=== PATIENT | male | born 1935 | race Caucasian/White ===

== ENCOUNTER 2017-12-25 01:35 | Outpatient (CLI) | payer MEDICARE | END 2017-12-25 23:59 | disposition home or self-care (01) | LOC: DIABETIC 01:35 | PROVIDERS: ATTEND Internal Medicine Interventional Cardiology | DX: E11.21 Type 2 diabetes mellitus with diabetic nephropathy (principal) | CPT/HCPCS: G0108 ==

== ENCOUNTER 2019-09-02 12:23 | Observation (INO) | payer MEDICARE, OTHER ==
[~2019-09-02] VITALS: Ht 167.6 cm; Wt 160.0 kg
[2019-09-02 13:03] LABS: BASOPHILS % (AUTO) 0.7 % (0-1); EOSINOPHILS # (AUTO) 0.4 X10'3 (0-0.9); EOSINOPHILS % (AUTO) 6.7 % (0-6); HEMATOCRIT 38.7 % (42.0-52.0); LYMPHOCYTES # (AUTO) 1.4 X10'3 (1.1-4.8); LYMPHOCYTES % (AUTO) 23.7 % (21-51); MEAN CORPUSCULAR HEMOGLOBIN 32.9 PG (27.0-31.0); MEAN CORPUSCULAR HGB CONC 33.6 g/dL (33.0-36.5); MEAN CORPUSCULAR VOLUME 97.9 FL (78-98); MEAN PLATELET VOLUME 7.8 FL (7.4-10.4); MONOCYTES # (AUTO) 0.3 X10'3 (0-0.9); MONOCYTES % (AUTO) 5.4 % (2-12); NEUTROPHILS # (AUTO) 3.8 X10'3 (1.8-7.7); NEUTROPHILS % (AUTO) 63.5 % (42-75); PLATELET COUNT 179 X10'3 (140-440); RED BLOOD COUNT 3.95 X10'6 (4.70-6.10); RED CELL DISTRIBUTION WIDTH 14.5 % (11.5-14.5); WHITE BLOOD COUNT 5.9 X10'3 (4.5-11.0)
[2019-09-02 13:45] LABS: ALANINE AMINOTRANSFERASE 27 U/L (12-78); ALBUMIN 3.3 G/DL (3.4-5.0); ALBUMIN/GLOBULIN RATIO 0.9 (1.1-1.5); ALKALINE PHOSPHATASE 99 IU/L (46-116); ANION GAP 9 (8-16); ASPARTATE AMINO TRANSFERASE 19 U/L (10-37); BILIRUBIN,TOTAL 0.4 MG/DL (0.1-1.0); BLOOD UREA NITROGEN 26 MG/DL (7-18); BUN/CREATININE RATIO 15.3 (5.4-32.0); CALCIUM 8.8 MG/DL (8.5-10.1); CHLORIDE 107 MMOL/L (99-107); GLUCOSE 213 MG/DL (70-104); POTASSIUM 4.1 MMOL/L (3.5-5.1); SODIUM 141 MMOL/L (135-145); TOTAL CARBON DIOXIDE 24.6 MMOL/L (24-32); TOTAL PROTEIN 7.1 G/DL (6.4-8.2); eGFR 39 ML/MIN
[2019-09-02] MEDS ORDERED: magnesium Cl slow-release 64mg tablet PO PRN (14:50)
[2019-09-02] MEDS ORDERED: acetaminophen 325mg tablet PO PRN (14:50)
[2019-09-02] MEDS ORDERED: ondansetron/PF 4mg/2ml inj IV PRN (14:50)
[2019-09-02] MEDS ORDERED: potassium Cl 20 mEq SR tablet PO PRN ×2 (14:50)
[2019-09-02] MEDS ORDERED: magnesium 4gm in 100ml NS 100 ML IV PRN (14:50)
[2019-09-02] MEDS ORDERED: potassium CL 10mEq/100ml bag 100 ML IV PRN ×2 (14:50)
[2019-09-02] MEDS ORDERED: morphine 2 MG/ML inj. syringe IV PRN (14:50)
[2019-09-02] MEDS ORDERED: magnesium 2GM in 50ml NS 50 ML IV PRN (14:50)
[2019-09-02] MEDS ORDERED: LOSA100T57 PO (15:21)
[2019-09-02] MEDS ORDERED: OMEG-107 PO (15:21)
[2019-09-02] MEDS ORDERED: DORZ10DR10 OP (15:21)
[2019-09-02] MEDS ORDERED: ASPI-611 PO (15:21)
[2019-09-02] MEDS ORDERED: ALLO100T PO (15:21)
[2019-09-02] MEDS ORDERED: ALOG12.52 PO (15:23)
[2019-09-02] MEDS ORDERED: ATOR40TA71 PO (15:23)
--- NOTE | 2019-09-02 16:00 | NUR ---
Patient in room MED 313. I have received report from Deedee HEDRICK RN and had the opportunity to ask questions and assume patient care.
--- NOTE | 2019-09-02 16:20 | NUR ---
Pt brought to room 313 and he was oriented to his room, call light, telephone etc. He is A&O x4. Placed on monitor. His VS are stable. He denies any chest pain or SOB. He requested to stay up in his chair by the bed. Call light is in reach.
[2019-09-02 16:30] VITALS: BP 159/74
[2019-09-02] MEDS ORDERED: dextrose ORAL solution 15 GM/59 ML bottle PO PRN ×2 (16:50)
[2019-09-02] MEDS ORDERED: MESSAGE TO PHARMACY PO ONE (16:50)
[2019-09-02] MEDS ORDERED: dextrose 50%-water 50ml dispensing syringe IV PRN ×2 (16:50)
[2019-09-02] MEDS ORDERED: glucagon, human recombinant 1mg kit SUBCUT PRN (16:50)
[2019-09-02] MEDS ORDERED: insulin Lispro (HumaLOG) vial - multi-dose SQ SCH (16:50)
[2019-09-02 17:17] LABS: HEMOGLOBIN A1C 7.5 % (4.5-6.2)
[2019-09-02] MEDS: allopurinol 100mg tablet PO SCH (17:55)
[2019-09-02 18:00] VITALS: BP 149/71
--- NOTE | 2019-09-02 18:10 | NUR ---
received report from CHRISTIANA Sibley
--- NOTE | 2019-09-02 19:16 | NUR ---
pt to the bathroom, tele 27, television servicer notified
[2019-09-02] MEDS: omega-3 acid ethyl esters 1GM capsule PO SCH (19:44)
[2019-09-02] MEDS: dorzolamide/timolol (Cosopt) ophthalmic drops 10ml bottle EACHEYE SCH (19:44)
[2019-09-02] MEDS: heparin, porcine 5000 units/ml vial SQ SCH (19:44)
[2019-09-02] MEDS: K and/or MAG REPLACEMENT MC SCH (19:50)
[2019-09-02] MEDS ORDERED: insulin glargine (Lantus) pen - multi-dose SQ SCH (21:00)
[2019-09-02 22:00] VITALS: BP 136/67
[2019-09-03 00:53] LABS: EOSINOPHILS # (AUTO) 0.4 X10'3 (0-0.9); MONOCYTES # (AUTO) 0.5 X10'3 (0-0.9)
[2019-09-03 00:54] LABS: BASOPHILS % (AUTO) 0.5 % (0-1); EOSINOPHILS % (AUTO) 6.7 % (0-6); HEMATOCRIT 38.6 % (42.0-52.0); LYMPHOCYTES % (AUTO) 32.7 % (21-51); MEAN CORPUSCULAR HEMOGLOBIN 32.8 PG (27.0-31.0); MEAN CORPUSCULAR HGB CONC 33.7 g/dL (33.0-36.5); MEAN CORPUSCULAR VOLUME 97.3 FL (78-98); MEAN PLATELET VOLUME 7.9 FL (7.4-10.4); MONOCYTES % (AUTO) 8.5 % (2-12); NEUTROPHILS # (AUTO) 3.2 X10'3 (1.8-7.7); NEUTROPHILS % (AUTO) 51.6 % (42-75); PLATELET COUNT 173 X10'3 (140-440); RED BLOOD COUNT 3.97 X10'6 (4.70-6.10); RED CELL DISTRIBUTION WIDTH 14.6 % (11.5-14.5); WHITE BLOOD COUNT 6.1 X10'3 (4.5-11.0)
[2019-09-03 01:08] LABS: ALBUMIN 3.1 G/DL (3.4-5.0); ANION GAP 8 (8-16); BLOOD UREA NITROGEN 29 MG/DL (7-18); BUN/CREATININE RATIO 17.7 (5.4-32.0); CHLORIDE 108 MMOL/L (99-107); CREATININE 1.64 MG/DL (0.60-1.10); GLUCOSE 115 MG/DL (70-104); MAGNESIUM 1.9 MG/DL (1.5-2.4); POTASSIUM 4.3 MMOL/L (3.5-5.1); SODIUM 142 MMOL/L (135-145); TOTAL CARBON DIOXIDE 26.3 MMOL/L (24-32); eGFR 40 ML/MIN
[2019-09-03 02:00] VITALS: BP 138/73
--- NOTE | 2019-09-03 06:19 | NUR ---
Patient in room MED 313. I have received report from CHRISTIANA Mcknight and had the opportunity to ask questions and assume patient care.
--- NOTE | 2019-09-03 06:22 | NUR ---
gave report to CHRISTIANA Dodd
[2019-09-03 06:52] VITALS: BP 132/77
[2019-09-03] MEDS ORDERED: aspirin 81mg tablet.DR PO SCH (08:00)
[2019-09-03] MEDS: K and/or MAG REPLACEMENT MC SCH (08:00)
[2019-09-03] MEDS ORDERED: losartan 50mg tablet PO SCH (08:00)
[2019-09-03] MEDS ORDERED: atorvastatin 20mg tablet PO SCH (08:00)
[2019-09-03] MEDS ORDERED: linagliptin 5mg tablet PO SCH (08:00)
[2019-09-03] MEDS: allopurinol 100mg tablet PO SCH (08:49)
[2019-09-03] MEDS: dorzolamide/timolol (Cosopt) ophthalmic drops 10ml bottle EACHEYE SCH (08:50)
[2019-09-03] MEDS: omega-3 acid ethyl esters 1GM capsule PO SCH (08:50)
[2019-09-03] MEDS: heparin, porcine 5000 units/ml vial SQ SCH (08:53)
--- NOTE | 2019-09-03 09:44 | NUR ---
VASCULAR PAGED: 313: YVES - CAROTID DOPPLERS ORDERED. THANK YOU
--- NOTE | 2019-09-03 09:45 | NUR ---
ELECTROLYSIS NEEDLE OPERATOR PAGED: 313: YVES - ECHO ORDERED TY
[2019-09-03 11:00] VITALS: BP 134/69
--- NOTE | 2019-09-03 11:56 | NUR ---
PAGER ID: [phone] MESSAGE: 313: YVES - carotid report from [facility] office done 08/31/19. <50% stenosis R dist CA, 50% stenosis L dist CA. similar to previous carotids study. nurse Ju [phone]
--- NOTE | 2019-09-03 13:30 | NUR ---
discharge instructions given to patient and . all questions and concerns addressed at this time. PIV removed with tip intact. stable for discharge. patient walked independently to private vehicle, denied need for wheelchair escort to lobby.
== END 2019-09-03 13:20 | disposition home or self-care (01) ==
LOC: ER 12:23 → ED HOLD 14:46 → MED 3N 16:20
PROVIDERS: ADMIT Internal Medicine; ATTEND Internal Medicine
DX: R07.89 Other chest pain (principal); R01.1 Cardiac murmur, unspecified; F41.9 Anxiety disorder, unspecified; E11.9 Type 2 diabetes mellitus without complications; I10 Essential (primary) hypertension; I25.2 Old myocardial infarction; M19.90 Unspecified osteoarthritis, unspecified site; I34.0 Nonrheumatic mitral (valve) insufficiency; I25.10 Atherosclerotic heart disease of native coronary artery without angina pectoris; E78.5 Hyperlipidemia, unspecified; Z95.1 Presence of aortocoronary bypass graft; Z95.5 Presence of coronary angioplasty implant and graft; Z79.82 Long term (current) use of aspirin; Z79.899 Other long term (current) drug therapy
CPT/HCPCS: 36415; 71045; 80048; 80053; 82948; 83036; 83735; 84484; 85025; 87081; 93005; 93306; 96372; 99284; G0378; J1644; J1815

== ENCOUNTER 2020-04-20 09:32 | Outpatient (CLI) | payer BC ==
[~2020-04-20 09:32] MED LIST: ALLO100T PO; ALOG12.52 PO; ASPI-611 PO; ATOR40TA71 PO; DORZ10DR10 OP; LOSA100T57 PO; OMEG-107 PO
[2020-04-20 10:22] LABS: BASOPHILS % (AUTO) 0.5 % (0-1); EOSINOPHILS # (AUTO) 0.7 X10'3 (0-0.9); EOSINOPHILS % (AUTO) 8.7 % (0-6); HEMATOCRIT 40.4 % (42.0-52.0); HEMOGLOBIN 13.2 g/dl (14.0-17.9); LYMPHOCYTES # (AUTO) 1.9 X10'3 (1.1-4.8); LYMPHOCYTES % (AUTO) 24.4 % (21-51); MEAN CORPUSCULAR HEMOGLOBIN 32.7 PG (27.0-31.0); MEAN CORPUSCULAR HGB CONC 32.8 g/dL (33.0-36.5); MEAN CORPUSCULAR VOLUME 99.8 FL (78-98); MEAN PLATELET VOLUME 8.3 FL (7.4-10.4); MONOCYTES # (AUTO) 0.5 X10'3 (0-0.9); MONOCYTES % (AUTO) 6.9 % (2-12); NEUTROPHILS # (AUTO) 4.6 X10'3 (1.8-7.7); NEUTROPHILS % (AUTO) 59.5 % (42-75); PLATELET COUNT 176 X10'3 (140-440); RED BLOOD COUNT 4.05 X10'6 (4.70-6.10); RED CELL DISTRIBUTION WIDTH 14.7 % (11.5-14.5); WHITE BLOOD COUNT 7.8 X10'3 (4.5-11.0)
[2020-04-20 10:26] LABS: ALBUMIN 3.5 G/DL (3.4-5.0); ANION GAP 9 (8-16); BLOOD UREA NITROGEN 40 MG/DL (7-18); BUN/CREATININE RATIO 21.5 (5.4-32.0); CALCIUM 8.9 MG/DL (8.5-10.1); CHLORIDE 106 MMOL/L (99-107); CREATININE 1.86 MG/DL (0.60-1.10); GLUCOSE 164 MG/DL (70-104); POTASSIUM 4.3 MMOL/L (3.5-5.1); SODIUM 139 MMOL/L (135-145); TOTAL CARBON DIOXIDE 24.1 MMOL/L (24-32); eGFR 35 ML/MIN
[2020-04-20 10:30] LABS: PARTIAL THROMBOPLASTIN TIME 35 SECONDS (22-32)
== END 2020-04-20 23:59 | disposition home or self-care (01) ==
LOC: SSTAY O 09:32 → EDSTATUS 04-25 11:00
PROVIDERS: ATTEND Internal Medicine Interventional Cardiology
DX: I10 Essential (primary) hypertension (principal); I25.10 Atherosclerotic heart disease of native coronary artery without angina pectoris
CPT/HCPCS: 36415; 80048; 85025; 85610; 85730

== ENCOUNTER 2021-02-27 09:31 | Day surgery (SDC) | payer MEDICARE, OTHER ==
[~2021-02-27] VITALS: Ht 167.6 cm; Wt 74.6 kg
[2021-02-27] VITALS (9 sets, daily range): BP systolic 132–145; BP diastolic 75–86
[~2021-02-27 09:31] MED LIST changes: -OMEG-107 PO; +OMEG-220 PO
[2021-02-27] MEDS ORDERED: LIDOcaine/PRILOcaine 5gm cream TP ONE (09:53)
[2021-02-27] MEDS ORDERED: LORazepam 0.5 MG tablet PO PRN (09:55)
[2021-02-27] MEDS ORDERED: diphenhydrAMINE 25mg capsule PO PRN (09:55)
[2021-02-27] MEDS ORDERED: normal saline 1,000 ML IV SCH (09:55)
[2021-02-27] MEDS ORDERED: ISOS60TA71 PO (10:28)
[2021-02-27] MEDS ORDERED: TIMO5DRO32 RIGHTEYE (10:28)
[2021-02-27] MEDS ORDERED: CARV-49 PO (10:28)
[2021-02-27] MEDS ORDERED: midazolam 1 mg/ML 2ml injection ONE (12:50)
[2021-02-27] MEDS ORDERED: fentaNYL/PF 50MCG/1 ML 2ML syringe ONE (12:50)
[2021-02-27] MEDS ORDERED: iohexol 350MG/ML 100ml bottle IV ONE (12:51)
[2021-02-27] MEDS ORDERED: LIDOcaine 1% (10mg/ml)w/preservative injection 20ml MDV ONE (12:51)
[2021-02-27] MEDS ORDERED: ondansetron/PF 4mg/2ml inj IV PRN (14:10)
[2021-02-27] MEDS ORDERED: OXAZEpam 15mg capsule PO PRN (14:10)
[2021-02-27] MEDS ORDERED: proCHLORperazine 10 MG/2 ml inj IV PRN (14:10)
== END 2021-02-27 17:00 | disposition home or self-care (01) ==
LOC: SSTAY O 09:31
PROVIDERS: ATTEND Internal Medicine Interventional Cardiology
DX: I25.810 Atherosclerosis of coronary artery bypass graft(s) without angina pectoris (principal); E11.22 Type 2 diabetes mellitus with diabetic chronic kidney disease; I12.9 Hypertensive chronic kidney disease with stage 1 through stage 4 chronic kidney disease, or unspecified chronic kidney disease; N18.9 Chronic kidney disease, unspecified; I65.23 Occlusion and stenosis of bilateral carotid arteries; E78.5 Hyperlipidemia, unspecified; I34.0 Nonrheumatic mitral (valve) insufficiency; I71.4 Abdominal aortic aneurysm, without rupture; M10.9 Gout, unspecified; Z95.5 Presence of coronary angioplasty implant and graft; Z79.899 Other long term (current) drug therapy; Z79.82 Long term (current) use of aspirin
CPT/HCPCS: 82948; 93005; 93459; 99152; C1769; J1644; J2001; J2250; J3010; J7030; Q0163; Q9967; 99153; A4620; A6258

== ENCOUNTER 2021-10-08 13:42 | Outpatient (CLI) | payer MEDICARE, OTHER ==
[~2021-10-08 13:42] MED LIST changes: +CARV-49 PO; +ISOS60TA71 PO; -OMEG-220 PO; +TIMO5DRO32 RIGHTEYE
[2021-10-08 14:09] LABS: BASOPHILS # (AUTO) 0.1 X10'3 (0-0.2); BASOPHILS % (AUTO) 0.8 % (0-1); EOSINOPHILS # (AUTO) 0.7 X10'3 (0-0.9); EOSINOPHILS % (AUTO) 10.8 % (0-6); HEMATOCRIT 38.3 % (42.0-52.0); HEMOGLOBIN 12.7 g/dl (14.0-17.9); LYMPHOCYTES # (AUTO) 1.9 X10'3 (1.1-4.8); MEAN CORPUSCULAR HEMOGLOBIN 32.9 PG (27.0-31.0); MEAN CORPUSCULAR HGB CONC 33.2 g/dL (33.0-36.5); MEAN CORPUSCULAR VOLUME 98.9 FL (78-98); MEAN PLATELET VOLUME 7.9 FL (7.4-10.4); MONOCYTES # (AUTO) 0.5 X10'3 (0-0.9); MONOCYTES % (AUTO) 7.9 % (2-12); NEUTROPHILS # (AUTO) 3.5 X10'3 (1.8-7.7); NEUTROPHILS % (AUTO) 52.5 % (42-75); PLATELET COUNT 239 X10'3 (140-440); RED BLOOD COUNT 3.87 X10'6 (4.70-6.10); RED CELL DISTRIBUTION WIDTH 17.2 % (11.5-14.5); WHITE BLOOD COUNT 6.7 X10'3 (4.5-11.0)
[2021-10-08 14:23] LABS: ALBUMIN 2.9 G/DL (3.4-5.0); ANION GAP 9 (8-16); BLOOD UREA NITROGEN 9 MG/DL (7-18); CALCIUM 8.4 MG/DL (8.5-10.1); CHLORIDE 101 MMOL/L (99-107); GLUCOSE 140 MG/DL (70-104); SODIUM 138 MMOL/L (135-145); eGFR 44 ML/MIN
[2021-10-12] MEDS ORDERED: CHOL100025 PO (13:56)
[2021-10-12] MEDS ORDERED: PANT-47 PO (13:56)
[2021-10-12] MEDS ORDERED: MEGE400O6 PO (13:56)
[2021-10-12] MEDS ORDERED: HYDR-4069 PO (13:56)
[2021-10-12] MEDS ORDERED: NIFE-33 PO (13:56)
[2021-10-12] MEDS ORDERED: VIT1TABL50 PO (13:56)
== END 2021-10-08 23:59 | disposition home or self-care (01) ==
LOC: LAB 13:42
PROVIDERS: ATTEND Surgery
DX: Z01.818 Encounter for other preprocedural examination (principal)
CPT/HCPCS: 36415; 80048; 85025

== ENCOUNTER 2021-11-19 15:12 | Emergency (ER) | payer OTHER, MEDICARE ==
[~2021-11-19] VITALS: Ht 167.6 cm; Wt 64.2 kg
[~2021-11-19 15:12] MED LIST changes: -ALOG12.52 PO; +CHOL100025 PO; +HYDR-4069 PO; -LOSA100T57 PO; +MEGE400O6 PO; +NIFE-33 PO; +PANT-47 PO; +VIT1TABL50 PO
[2021-11-19 15:17] VITALS: BP 166/82
--- NOTE | 2021-11-19 19:59 | NUR ---
F/C PLACED AND CHANGED TO LEG BAG
[2021-11-19 20:15] LABS: CLARITY,URINE CLEAR (Clear); COLOR,URINE YELLOW (Yellow); GLUCOSE, URINE NEGATIVE (Neg); KETONES,URINE NEGATIVE (Neg); LEUKOCYTE ESTERASE ,URINE NEGATIVE (Neg); NITRITES, URINE NEGATIVE (Neg); OCCULT BLOOD,URINE SMALL (Neg); PH,URINE 8.5 (4.8-8.0); PROTEIN,URINE 30 mg/dl (Neg); UROBILINOGEN,URINE 0.2 E.U/dL (0.2-1.0)
[2021-11-19 20:29] LABS: UA COLLECTION TYPE FOLEY CATH
[2021-11-19 20:32] LABS: BACTERIA,URINE FEW /HPF (Neg); MUCUS STRANDS FEW /LPF (Neg); SQUAMOUS EPITHELIAL CELL,UR NONE SEEN /LPF (FEW); WBC CLUMPS,URINE FEW /HPF (NEGATIVE)
== END 2021-11-19 20:02 | disposition home or self-care (01) ==
LOC: ER 15:13
DX: R33.9 Retention of urine, unspecified (principal); R50.9 Fever, unspecified; N32.89 Other specified disorders of bladder; I25.2 Old myocardial infarction; I12.0 Hypertensive chronic kidney disease with stage 5 chronic kidney disease or end stage renal disease; N18.6 End stage renal disease; Z99.2 Dependence on renal dialysis; Z95.5 Presence of coronary angioplasty implant and graft; Z98.890 Other specified postprocedural states; Z79.82 Long term (current) use of aspirin; Z79.899 Other long term (current) drug therapy
CPT/HCPCS: 51702; 81001; 87088; 99284

== ENCOUNTER 2021-11-20 08:54 | Inpatient (IN) | payer OTHER, MEDICARE ==
[~2021-11-20] VITALS: Ht 167.6 cm; Wt 65.9 kg
[2021-11-20 09:39] LABS: BASOPHILS # (AUTO) 0.1 X10'3 (0-0.2); BASOPHILS % (AUTO) 0.7 % (0-1); EOSINOPHILS # (AUTO) 0.8 X10'3 (0-0.9); EOSINOPHILS % (AUTO) 9.5 % (0-6); HEMATOCRIT 32.9 % (42.0-52.0); HEMOGLOBIN 10.8 g/dl (14.0-17.9); LYMPHOCYTES # (AUTO) 2.4 X10'3 (1.1-4.8); LYMPHOCYTES % (AUTO) 30.2 % (21-51); MEAN CORPUSCULAR HEMOGLOBIN 31.7 PG (27.0-31.0); MEAN CORPUSCULAR HGB CONC 32.8 g/dL (33.0-36.5); MEAN CORPUSCULAR VOLUME 96.6 FL (78-98); MEAN PLATELET VOLUME 7.7 FL (7.4-10.4); MONOCYTES # (AUTO) 0.5 X10'3 (0-0.9); MONOCYTES % (AUTO) 6.2 % (2-12); NEUTROPHILS # (AUTO) 4.2 X10'3 (1.8-7.7); NEUTROPHILS % (AUTO) 53.4 % (42-75); PLATELET COUNT 286 X10'3 (140-440); RED CELL DISTRIBUTION WIDTH 18.7 % (11.5-14.5); WHITE BLOOD COUNT 7.9 X10'3 (4.5-11.0)
[2021-11-20 10:12] LABS: ALANINE AMINOTRANSFERASE 17 U/L (12-78); ALBUMIN 2.5 G/DL (3.4-5.0); ALBUMIN/GLOBULIN RATIO 0.7 (1.1-1.5); ALKALINE PHOSPHATASE 73 IU/L (46-116); ANION GAP 14 (8-16); ASPARTATE AMINO TRANSFERASE 17 U/L (10-37); BILIRUBIN,TOTAL 0.3 MG/DL (0.1-1.0); BLOOD UREA NITROGEN 39 MG/DL (7-18); CALCIUM 8.5 MG/DL (8.5-10.1); CHLORIDE 106 MMOL/L (99-107); CREATININE 3.53 MG/DL (0.60-1.10); GLUCOSE 224 MG/DL (70-104); POTASSIUM 3.7 MMOL/L (3.5-5.1); SODIUM 141 MMOL/L (135-145); TOTAL CARBON DIOXIDE 20.8 MMOL/L (24-32); TOTAL PROTEIN 6.3 G/DL (6.4-8.2); eGFR 17 ML/MIN
[2021-11-20 10:18] LABS: ANISOCYTOSIS 2+; BURR CELLS FEW; ELLIPTOCYTES FEW; MICROCYTOSIS 1+; PLATELET ESTIMATE NORMAL
[2021-11-20 10:19] LABS: TEAR DROP CELLS FEW
--- NOTE | 2021-11-20 10:19 | NUR ---
waiting for bladder irrigation supplies ,dr brito aware.
--- NOTE | 2021-11-20 10:22 | NUR ---
kobe verma working on getting irrigation supplies.
[2021-11-20] MEDS ORDERED: LIDOcaine 2% 10ml TOPICAL JELLY (Urojet) MM ONE (10:30)
[2021-11-20 10:50] LABS: CLARITY,URINE BLOODY (Clear); COLOR,URINE RED (Yellow); UA COLLECTION TYPE FOLEY CATH
[2021-11-20 11:01] LABS: RBC,URINE TNTC /HPF (0-2)
[2021-11-20 11:02] LABS: WBC,URINE 0-4 /HPF (0-4)
[2021-11-20 11:03] LABS: BACTERIA,URINE FEW /HPF (Neg); SQUAMOUS EPITHELIAL CELL,UR NONE SEEN /LPF (FEW)
--- NOTE | 2021-11-20 12:00 | NUR ---
pt bladder irrigation procedure started ta 1123 and emptied urine bag and output is 2980 ml ,urine color is improving .3l of sterile water irrigated.
[2021-11-20] MEDS ORDERED: ondansetron/PF 4mg/2ml inj IV PRN (14:30)
[2021-11-20] MEDS ORDERED: HYDROcodone/acetaminophen 5mg/325mg tablet PO PRN (14:30)
[2021-11-20] MEDS ORDERED: HYDROcodone/acetaminophen 10/325mg tab PO PRN (14:30)
[2021-11-20] MEDS ORDERED: acetaminophen 325mg tablet PO PRN (14:30)
[2021-11-20] MEDS ORDERED: morphine 2 MG/ML inj. syringe IV PRN (14:30)
[2021-11-20] MEDS ORDERED: magnesium hydroxide 30ml (MOM) UD suspension PO PRN (14:30)
[2021-11-20] MEDS ORDERED: diphenhydrAMINE 25mg capsule PO PRN (14:30)
[2021-11-20] MEDS ORDERED: mag hydrox/Alum hydrox/simeth 30ml oral suspension PO PRN (14:30)
[2021-11-20] MEDS ORDERED: megestrol acetate 400mg/10ml UD oral suspension PO PRN (14:50)
[2021-11-20] MEDS: hydrALAZINE 25 MG tablet PO SCH ×2 (15:59→22:23)
[2021-11-20] MEDS: pantoprazole 40mg Tablet.DR PO SCH (16:01)
--- NOTE | 2021-11-20 17:31 | NUR ---
Bladder irrigation initiated at this time per MD order. Manual suction with dislodging of blood clot prior to begining irrigation. at bedside, patient resting in bed.
[2021-11-20] MEDS: TIMOLOL MALEATE 0.25% ophth drops RIGHTEYE SCH (20:00)
[2021-11-20] MEDS: carvedilol 6.25mg tablet PO SCH (20:00)
[2021-11-20] MEDS: docusate sod 100mg capsule PO SCH (20:00)
[2021-11-20] MEDS: tamsulosin 0.4mg capsule PO SCH (21:33)
[2021-11-20 23:35] VITALS: BP 159/82
[2021-11-21 02:00] VITALS: BP 179/97
[2021-11-21 06:00] VITALS: BP 184/98
[2021-11-21 06:07] LABS: EOSINOPHILS # (AUTO) 0.7 X10'3 (0-0.9); HEMATOCRIT 33.3 % (42.0-52.0); MEAN PLATELET VOLUME 7.8 FL (7.4-10.4); MONOCYTES # (AUTO) 0.7 X10'3 (0-0.9)
[2021-11-21 06:15] LABS: BASOPHILS % (AUTO) 0.3 % (0-1); EOSINOPHILS % (AUTO) 6.1 % (0-6); HEMOGLOBIN 10.8 g/dl (14.0-17.9); LYMPHOCYTES # (AUTO) 2.4 X10'3 (1.1-4.8); LYMPHOCYTES % (AUTO) 22.4 % (21-51); MEAN CORPUSCULAR HGB CONC 32.6 g/dL (33.0-36.5); MEAN CORPUSCULAR VOLUME 98.1 FL (78-98); MONOCYTES % (AUTO) 6.8 % (2-12); NEUTROPHILS % (AUTO) 64.4 % (42-75); PLATELET COUNT 275 X10'3 (140-440); RED BLOOD COUNT 3.39 X10'6 (4.70-6.10); RED CELL DISTRIBUTION WIDTH 18.7 % (11.5-14.5); WHITE BLOOD COUNT 10.9 X10'3 (4.5-11.0)
--- NOTE | 2021-11-21 06:15 | NUR ---
Patient in room PCU 3025. I have received report from Darrell VILLEDA and had the opportunity to ask questions and assume patient care.
[2021-11-21 06:24] LABS: ALANINE AMINOTRANSFERASE 15 U/L (12-78); ALBUMIN 2.6 G/DL (3.4-5.0); ALBUMIN/GLOBULIN RATIO 0.7 (1.1-1.5); ALKALINE PHOSPHATASE 74 IU/L (46-116); ANION GAP 9 (8-16); ASPARTATE AMINO TRANSFERASE 14 U/L (10-37); BILIRUBIN,TOTAL 0.3 MG/DL (0.1-1.0); BLOOD UREA NITROGEN 46 MG/DL (7-18); BUN/CREATININE RATIO 13.7 (5.4-32.0); CALCIUM 8.7 MG/DL (8.5-10.1); CHLORIDE 109 MMOL/L (99-107); CREATININE 3.36 MG/DL (0.60-1.10); GLUCOSE 132 MG/DL (70-104); MAGNESIUM 1.6 MG/DL (1.5-2.4); PHOSPHORUS 4.1 MG/DL (2.3-4.5); SODIUM 140 MMOL/L (135-145); TOTAL CARBON DIOXIDE 22.1 MMOL/L (24-32); TOTAL PROTEIN 6.3 G/DL (6.4-8.2); eGFR 18 ML/MIN
[2021-11-21] MEDS ORDERED: heparin 1,000 units/ml 10ml inj HE ONE ×2 (08:00)
[2021-11-21] MEDS ORDERED: allopurinol 100mg tablet PO SCH (08:00)
[2021-11-21] MEDS ORDERED: atorvastatin 20mg tablet PO SCH (08:00)
[2021-11-21] MEDS ORDERED: FLO0.4C PO (08:22)
[2021-11-21] MEDS: pantoprazole 40mg Tablet.DR PO SCH (08:34)
[2021-11-21] MEDS: docusate sod 100mg capsule PO SCH ×2 (09:42→20:22)
[2021-11-21] MEDS: cholecalciferol (vitamin D3) 1,000 unit (25mcg) tablet PO SCH (09:42)
[2021-11-21] MEDS: carvedilol 6.25mg tablet PO SCH ×2 (09:45→20:22)
[2021-11-21] MEDS: hydrALAZINE 25 MG tablet PO SCH ×3 (09:45→23:57)
[2021-11-21] MEDS: beta-carotene(A) w/C & E + minerals tab PO SCH (09:46)
[2021-11-21] MEDS: TIMOLOL MALEATE 0.25% ophth drops RIGHTEYE SCH ×2 (09:46→20:00)
[2021-11-21 11:00] VITALS: BP 191/93
[2021-11-21] MEDS: NIFEdipine XL 30mg tablet PO SCH (11:51)
[2021-11-21] MEDS: isosorbide mononitrate 30mg tab.SR.24H PO SCH (11:51)
[2021-11-21] MEDS ORDERED: ROSU20TA2 PO (11:54)
[2021-11-21] MEDS ORDERED: TIMO5DRO32 EACHEYE (11:59)
[2021-11-21] MEDS ORDERED: DORZ10DR2 EACHEYE (11:59)
--- NOTE | 2021-11-21 12:01 | NUR ---
DM consult: Pt w/ T2DM, A1c pending. Will monitor need for DM education pending A1c. Addendum: 11/21/21 at 1201 by Mavis Aviles Waiter/Waitress Tourist Class RD Amended: Links added. Addendum: 11/21/21 at [address] I have reviewed assessment by web marketing intern
[2021-11-21 12:20] LABS: HEMOGLOBIN A1C 6.5 % (4.5-6.2)
[2021-11-21 15:00] VITALS: BP 91/56
--- NOTE | 2021-11-21 15:07 | NUR ---
F/u for DM consult: Patient's A1c is 6.5%, DM education not warranted at this time. Will continue to follow. Addendum: 11/21/21 at [address] Amended: Links added.
--- NOTE | 2021-11-21 17:02 | NUR ---
Charted on wrong Pt
--- NOTE | 2021-11-21 17:17 | NUR ---
Paged Dr. Betancourt regarding patient requesting to be switched from Lipitor to Crestor. PAGER ID: [phone] MESSAGE: [id number], Andre [place]en[place]. Patient was requesting to have Lipitor switched to Crestor. They said their dr stopped the Lipitor due to itching and was switching to Crestor. Shanita [facility] 2155.
[2021-11-21 18:00] VITALS: BP 122/69
--- NOTE | 2021-11-21 18:51 | NUR ---
Problems reprioritized. Patient report given, questions answered & plan of care reviewed with Darrell VILLEDA.
[2021-11-21] MEDS: tamsulosin 0.4mg capsule PO SCH (20:22)
[2021-11-21 22:00] VITALS: BP 142/66
[2021-11-22 02:00] VITALS: BP 121/67
[2021-11-22 06:00] VITALS: BP 141/66
[2021-11-22 06:01] LABS: BASOPHILS % (AUTO) 0.5 % (0-1); EOSINOPHILS # (AUTO) 0.6 X10'3 (0-0.9); EOSINOPHILS % (AUTO) 6.9 % (0-6); HEMATOCRIT 28.6 % (42.0-52.0); HEMOGLOBIN 9.4 g/dl (14.0-17.9); LYMPHOCYTES % (AUTO) 36.4 % (21-51); MEAN CORPUSCULAR HEMOGLOBIN 31.7 PG (27.0-31.0); MEAN CORPUSCULAR HGB CONC 32.8 g/dL (33.0-36.5); MEAN CORPUSCULAR VOLUME 96.5 FL (78-98); MEAN PLATELET VOLUME 7.6 FL (7.4-10.4); MONOCYTES # (AUTO) 0.6 X10'3 (0-0.9); MONOCYTES % (AUTO) 7.8 % (2-12); NEUTROPHILS % (AUTO) 48.4 % (42-75); PLATELET COUNT 228 X10'3 (140-440); RED BLOOD COUNT 2.96 X10'6 (4.70-6.10); RED CELL DISTRIBUTION WIDTH 19.1 % (11.5-14.5); WHITE BLOOD COUNT 8.2 X10'3 (4.5-11.0)
[2021-11-22 07:24] LABS: ALANINE AMINOTRANSFERASE 14 U/L (12-78); ALBUMIN 2.1 G/DL (3.4-5.0); ALBUMIN/GLOBULIN RATIO 0.6 (1.1-1.5); ALKALINE PHOSPHATASE 55 IU/L (46-116); ANION GAP 9 (8-16); ASPARTATE AMINO TRANSFERASE 20 U/L (10-37); BILIRUBIN,TOTAL 0.3 MG/DL (0.1-1.0); BLOOD UREA NITROGEN 20 MG/DL (7-18); BUN/CREATININE RATIO 9.7 (5.4-32.0); CALCIUM 8.3 MG/DL (8.5-10.1); CHLORIDE 105 MMOL/L (99-107); CREATININE 2.07 MG/DL (0.60-1.10); GLUCOSE 102 MG/DL (70-104); MAGNESIUM 1.5 MG/DL (1.5-2.4); PHOSPHORUS 2.9 MG/DL (2.3-4.5); POTASSIUM 3.1 MMOL/L (3.5-5.1); SODIUM 141 MMOL/L (135-145); TOTAL CARBON DIOXIDE 27.4 MMOL/L (24-32); TOTAL PROTEIN 5.8 G/DL (6.4-8.2); eGFR 31 ML/MIN
[2021-11-22] MEDS: docusate sod 100mg capsule PO SCH (08:00)
[2021-11-22] MEDS: pantoprazole 40mg Tablet.DR PO SCH (10:11)
[2021-11-22] MEDS: isosorbide mononitrate 30mg tab.SR.24H PO SCH (10:11)
[2021-11-22] MEDS: NIFEdipine XL 30mg tablet PO SCH (10:11)
[2021-11-22] MEDS: carvedilol 6.25mg tablet PO SCH (10:11)
[2021-11-22] MEDS: cholecalciferol (vitamin D3) 1,000 unit (25mcg) tablet PO SCH (10:11)
[2021-11-22] MEDS: beta-carotene(A) w/C & E + minerals tab PO SCH (10:11)
[2021-11-22] MEDS: hydrALAZINE 25 MG tablet PO SCH ×2 (10:12→16:00)
[2021-11-22] MEDS: TIMOLOL MALEATE 0.25% ophth drops RIGHTEYE SCH (10:13)
[2021-11-22 11:00] VITALS: BP 129/68
[2021-11-22] MEDS ORDERED: potassium Cl 40MEQ/1/2NS 520ml 520 ML IV PRN ×2 (13:25)
[2021-11-22] MEDS ORDERED: potassium Cl 20 mEq SR tablet PO PRN ×2 (13:25)
[2021-11-22 16:00] VITALS: BP_SYST 124
[2021-11-22 17:04] LABS: HBSAG SCREEN Negative (Negative)
--- NOTE | 2021-11-22 17:56 | NUR ---
Iv removed and intact. Dishcarge packet gone over anserwed all questions. Patiwent wheeled to car and left with .
[2021-11-22] MEDS ORDERED: K and/or MAG REPLACEMENT MC SCH (20:00)
== END 2021-11-22 17:51 | disposition home health service (06) | DRG 696 ==
LOC: ER 08:55 → ED HOLD 14:45 → PCU 3S 23:09
PROVIDERS: ADMIT Internal Medicine; ATTEND Internal Medicine
PROC: 3E1K78Z Irrigation of Genitourinary Tract using Irrigating Substance, Via Natural or Artificial Opening (ICD-10-PCS; 2021-11-20)
PROC: 5A1D70Z Performance of Urinary Filtration, Intermittent, Less than 6 Hours Per Day (ICD-10-PCS; principal; 2021-11-21)
DX: R31.0 Gross hematuria (principal); I12.0 Hypertensive chronic kidney disease with stage 5 chronic kidney disease or end stage renal disease; N18.6 End stage renal disease; D64.9 Anemia, unspecified; I25.10 Atherosclerotic heart disease of native coronary artery without angina pectoris; R32 Unspecified urinary incontinence; R35.1 Nocturia; R39.12 Poor urinary stream; N40.1 Benign prostatic hyperplasia with lower urinary tract symptoms; R35.0 Frequency of micturition; Z95.1 Presence of aortocoronary bypass graft; Z95.5 Presence of coronary angioplasty implant and graft; I25.2 Old myocardial infarction; Z99.2 Dependence on renal dialysis; Z88.8 Allergy status to other drugs, medicaments and biological substances; Z79.899 Other long term (current) drug therapy
CPT/HCPCS: 36415; 80053; 81001; 83036; 83735; 84100; 85008; 85025; 85610; 87081; 87340; 99285; G0257; G0378; J1644

== ENCOUNTER 2022-02-27 10:04 | Day surgery (SDC) | payer MEDICARE, OTHER ==
[2022-02-26 12:28] LABS: BASOPHILS # (AUTO) 0.1 X10'3 (0-0.2); BASOPHILS % (AUTO) 0.6 % (0-1); EOSINOPHILS # (AUTO) 0.8 X10'3 (0-0.9); EOSINOPHILS % (AUTO) 8.9 % (0-6); LYMPHOCYTES # (AUTO) 2.8 X10'3 (1.1-4.8); LYMPHOCYTES % (AUTO) 30.8 % (21-51); MEAN CORPUSCULAR HEMOGLOBIN 32.1 PG (27.0-31.0); MEAN CORPUSCULAR HGB CONC 33.3 g/dL (33.0-36.5); MEAN CORPUSCULAR VOLUME 96.4 FL (78-98); MEAN PLATELET VOLUME 7.7 FL (7.4-10.4); MONOCYTES # (AUTO) 0.7 X10'3 (0-0.9); MONOCYTES % (AUTO) 7.5 % (2-12); NEUTROPHILS # (AUTO) 4.8 X10'3 (1.8-7.7); NEUTROPHILS % (AUTO) 52.2 % (42-75); PRE OP PLATELET COUNT 212 X10'3 (140-440); RED CELL DISTRIBUTION WIDTH 16.7 % (11.5-14.5)
[2022-02-26 12:37] LABS: PRE OP HEMOGLOBIN 9.6 g/dL (14.0-17.9)
[2022-02-26 12:42] LABS: ALBUMIN 3.1 G/DL (3.4-5.0); ALBUMIN/GLOBULIN RATIO 0.7 (1.1-1.5); ALKALINE PHOSPHATASE 62 IU/L (46-116); BLOOD UREA NITROGEN 54 MG/DL (7-18); BUN/CREATININE RATIO 15.9 (5.4-32.0); CALCIUM 8.8 MG/DL (8.5-10.1); CHLORIDE 107 MMOL/L (99-107); PRE OP ALT 17 U/L (30-65); PRE OP ANION GAP 9 (8-16); PRE OP AST 15 U/L (10-37); PRE OP BILIRUB, TOTAL 0.3 MG/DL (0.0-1.0); PRE OP SODIUM 134 MMOL/L (135-145); TOTAL CARBON DIOXIDE 18.3 MMOL/L (24-32); TOTAL PROTEIN 7.5 G/DL (6.4-8.2); eGFR 17 ML/MIN
[2022-02-26 12:47] LABS: PRE OP GLUCOSE 215 MG/DL (70-104)
[~2022-02-27] VITALS: Ht 167.6 cm; Wt 58.1 kg
[2022-02-27] VITALS (7 sets, daily range): BP systolic 126–152; BP diastolic 73–78
[~2022-02-27 10:04] MED LIST changes: -ATOR40TA71 PO; +DOCUMENT DATE & TIME OF BETA-BLOCKER PO ONE; -DORZ10DR10 OP; +DORZ10DR2 EACHEYE; +FERR325T28 PO; +FINA5TAB11 PO; +FLO0.4C PO; +NEPHC PO; +ROSU10TA2 PO; +TIMO5DRO32 EACHEYE; -TIMO5DRO32 RIGHTEYE; -VIT1TABL50 PO; +ceFAZolin inj. 2,000 MG in dextrose 5%-water 100 ML IV ONE; +famotidine 20mg tablet PO ONE; +ringers solution, lacted 1,000 ML IV SCH
--- NOTE | 2022-02-27 11:07 | NUR ---
PATIENT HAS F/C FROM HOME WITH LEG BAG TO LEFT LEG WITH CLEAR YELLOW URINE IN BAG. AWARE
[2022-02-27] MEDS ORDERED: scopolamine 1.5mg patch.TD72 (72-hour patch) TD ONE (11:10)
[2022-02-27] MEDS ORDERED: scopolamine 1mg/72 hr patch TD ONE (11:15)
[2022-02-27] MEDS ORDERED: aprepitant 40mg capsule PO ONE (12:35)
[2022-02-27] MEDS ORDERED: BUPIVAcaine/PF 2.5 mg/ml (0.25%) 30ml vial ONE (13:25)
[2022-02-27] MEDS ORDERED: bacitracin 15gm ointment TP ONE (13:25)
[2022-02-27] MEDS ORDERED: ondansetron/PF 4mg/2ml inj IV PRN (14:00)
[2022-02-27] MEDS ORDERED: meperidine/PF 25mg/ml syringe IV PRN ×3 (14:00)
[2022-02-27] MEDS ORDERED: ringers solution, lacted 1,000 ML IV SCH (14:00)
[2022-02-27] MEDS ORDERED: proCHLORperazine 10 MG/2 ml inj IV PRN (14:00)
[2022-02-27] MEDS ORDERED: morphine 2 MG/ML inj. syringe IV PRN (14:00)
[2022-02-27] MEDS ORDERED: morphine 4 MG/ML inj SYRINge IV PRN (14:00)
[2022-02-27] MEDS ORDERED: sevoflurane 250ml liquid IH ONE (14:48)
[2022-02-27] MEDS ORDERED: fentaNYL/PF 50MCG/1 ML 2ML syringe ONE (14:53)
[2022-02-27] MEDS ORDERED: propofol inj 20 ML IV ONE (14:54)
[2022-02-27] MEDS ORDERED: rocuronium 10mg/ml inj IV ONE (15:23)
[2022-02-27] MEDS ORDERED: ondansetron/PF 4mg/2ml inj ONE (15:23)
[2022-02-27] MEDS ORDERED: dexamethasone sod phosphate 4mg/ml inj. ONE (15:23)
[2022-02-27] MEDS ORDERED: sugammadex 200mg/2ml injection IV ONE (15:29)
--- NOTE | 2022-02-27 15:43 | NUR ---
Received from OR via MICHELE , accompanied by Anesthesiologist BRYSON and report given by Anesthesiolgist. PATIENT WITH 20G PIV IN RIGHT UE RUNNING NS AT 10. 3 LAP SITES - ALL CDI. PRESENT. DENIES PAIN. VSS. LEG BAG FROM HOME ON AND WITH CLEAR YELLOW URINE PRESENT. EMPTIED UPON ARRIVAL Addendum: 02/27/22 at 1553 by Nick Aviles RN, RN Amended: Links added.
--- NOTE | 2022-02-27 16:03 | NUR ---
126 [facility] OP. Addendum: 02/27/22 at 1603 by Nick Aviles RN RN Amended: Links added.
--- NOTE | 2022-02-27 16:43 | NUR ---
PT DC'D PER MD ORDER, MEETS REQUIREMENTS. PT ASSISTED OUT TO FAMILY MEMBER LEANNA WITH WHEELCHAIR WITHOUT INCIDENT, INTO CARE OF . PT AMBULATORY AND INDEPENDENT, STEADY NARROW GAIT. IV REMOVED, DENIES PAIN. NO COMPLAINTS, PT VERBALIZED UNDERSTANDING OF VERBAL AND WRITTEN PAPERWORK. Addendum: 02/27/22 at 1650 by Luis Carlos Brown RN Amended: Links added.
== END 2022-02-27 16:43 | disposition home or self-care (01) ==
LOC: PAS 10:04
PROVIDERS: ATTEND Surgery
DX: Z49.02 Encounter for fitting and adjustment of peritoneal dialysis catheter (principal); I25.10 Atherosclerotic heart disease of native coronary artery without angina pectoris; G47.30 Sleep apnea, unspecified; I25.2 Old myocardial infarction; F32.A Depression, unspecified; K21.9 Gastro-esophageal reflux disease without esophagitis; N40.0 Benign prostatic hyperplasia without lower urinary tract symptoms; E11.22 Type 2 diabetes mellitus with diabetic chronic kidney disease; I12.0 Hypertensive chronic kidney disease with stage 5 chronic kidney disease or end stage renal disease; N18.6 End stage renal disease; Z79.899 Other long term (current) drug therapy; Z79.82 Long term (current) use of aspirin; Z95.5 Presence of coronary angioplasty implant and graft; Z95.1 Presence of aortocoronary bypass graft; Z98.890 Other specified postprocedural states; Z82.3 Family history of stroke
CPT/HCPCS: 36415; 49422; 80053; 82948; 85025; 93005; J0690; J1100; J2405; J2704; J3010; J3490; J7040; J7060; J7120; J8501; Z7506; Z7512; A4215; A4618; A7000